=== PATIENT | female | born 1960 | race Asian ===

== ENCOUNTER 2025-01-20 14:49 | Emergency (ER) | payer OTHER, SELFPAY ==
[2025-01-20 14:52] VITALS: BP 183/107
[2025-01-20 16:00] VITALS: BP 203/110
[2025-01-20 16:47] VITALS: BMI 27.4
[2025-01-20 17:00] VITALS: BP 200/113
--- NOTE | 2025-01-20 17:01 | ED.GENMED ---
History of Present Illness
General
Chief Complaint: Headache
Source: patient
Time Seen by Provider: 01/20/25 16:48
Nursing documentation reviewed up to this point in time: agreed with
History of Present Illness
History of Present Illness:
64 yo female with hx HTN presents for high blood pressure and headache.
She stopped taking her BP meds a few months ago as she thought it was giving her heart burn
Past 2 weeks has had intermittent ringing in her left ear.
Her headache started 2 nights ago, is mainly right frontal and behind right eye. H/A was 10/10 with nausea at 11:30 this a.m. and went to who sent her here.
Took Tylenol 2 nights ago for h/a but nothing since.
Denies CP, SOB, abdominal pain. Denies nausea at this time, denies v/d/c
Past History
Past History
ED Past Medical History: HTN
ED Past Surgical History: Gynecological
Social History
Tobacco: Non-smoker
Alcohol: None
Personal: Single
Living: alone
Employment: Employed (Tailor)
Review of Systems
Review of Systems
Allergies reviewed?: Yes
All Other Systems: ROS reviewed and negative except as documented in HPI and ROS
Constitutional: Denies fever
Respiratory: Denies trouble breathing
Cardiac: Denies chest pain, diaphoresis or palpitations
ABD/GI: Denies abdominal pain, nausea, vomiting or diarrhea
: Denies dysuria, frequency or difficulty voiding
Musculoskeletal: Reports no symptoms
Skin: Reports no symptoms
Neurological: Reports headache; Denies dizzy, weakness or numbness
Phy Exam
Physical Exam
Physical Exam:
GENERAL: No acute distress. A&Ox3.
CONSTITUTIONAL: Afebrile.
EYES: clear, conjunctivae normal
ENMT: moist mucus membranes, Pharynx nl
RESPIRATORY: Regular respirations, nonlabored, lungs clear.
CARDIOVASCULAR: Regular rate and rhythm, no murmurs, no rubs.
GI: Soft, nontender, normal BS
MUSCULOSKELETAL: Moves with ease. Well perfused.
SKIN: Warm, dry, pink
PSYCH: Normal mood and affect. Well kept, interactive and appropriate
NEUROLOGIC: Awake, alert and oriented. No focal neurological deficits
Course
Orders/Labs/Results
Orders:
Orders
01/20/25 17:00
Electrocardiogram (*1) Urgent
Reason for Study: Hypertension, Benign
EKG- Treatment ONCE
01/20/25 17:01
CT Head W/o Iv Contrast Urgent
Comment:
Reason For Exam: right side headache, HTN
01/20/25 17:15
Complete Blood Count/With Diff Urgent
Comprehensive Metabolic Panel Urgent
01/20/25 17:20
Amlodipine [Norvasc] 5 mg PO NOW STA
Abnormal Lab Results
01/20/25
17:15
Neutrophils % 76.4 H %
(42.2-75.2)
Lymphocytes % 19.9 L %
(20.5-51.1)
Carbon Dioxide 31 H mmol/L
(22-30)
Creatinine 0.5 L mg/dL
(0.6-1.0)
Glucose 122 H mg/dl
(70-99)
Total Bilirubin 1.4 H mg/dl
(0.2-1.3)
01/20/25 17:15
01/20/25 17:15
Vital Signs
Initial and Last Documented VS:
Initial Vital Signs
Temp Pulse Resp BP Pulse Ox
98.3 F 70 16 183/107 100
01/20/25 14:52 01/20/25 14:52 01/20/25 14:52 01/20/25 14:52 01/20/25 14:52
Last Documented Vital Signs
Temp Pulse Resp BP Pulse Ox
98.3 F 83 17 167/105 97
01/20/25 14:52 01/20/25 19:30 01/20/25 19:30 01/20/25 19:00 01/20/25 19:30
Health Service Coordinator consulted with Physician
Health Service Coordinator consulted with physician?: Yes
Name of Physician Consulted: Jeny
MDM/Problems Addressed
Differential Diagnosis Includes:
Hypertensive urgency/emergency
Brain bleed
Hypertensive headache, migraine, tension headache
MDM/Problems Addressed:
64 yo female with hx HTN presents for high blood pressure and headache, mild blurry vision both eyes.
She stopped taking her BP meds a few months ago as she thought it was giving her heart burn
Past 2 weeks has had intermittent ringing in her left ear.
Her headache started 2 nights ago, is mainly right frontal and behind right eye. H/A was 10/10 with nausea at 11:30 this a.m. and went to who sent her here.
Took Tylenol 2 nights ago for h/a but nothing since.
Denies CP, SOB, abdominal pain. Denies nausea at this time, denies v/d/c
Afebrile, NAD, BP 183/107
Denies blurry vision presently
Pharmacist Edith reviewed patient's pharmacy list and found that she was on losartan 50 mg daily and also Tricor which she has not been taking.
6:00 p.m.
CBC, CMP unremarkable
Pt head CT pending
Amlodipine given
Rx for Amlodipine sent to pt pharmacy
Pt in CT.
Dr. Iqbal shift is over
Case discussed with Dr. Fermin who will assume care from this point
Chronic conditions affecting care: HTN
*Critical Care Note
Total Time (30-74mins, 75-104mins- exclusive of procedures): Not Applicable
ED Attending Note
-
Portions of this chart may have been created with voice recognition software.� Occasional wrong word or��sound alike� substitutions may have occurred due to the inherent limitations of voice recognition software.
Discharge Plan
Departure
Patient Disposition: Home (Routine Discharge)
Date of Disposition: 01/20/25
Time of Disposition: 19:08
Patient with high blood pressure during this ER visit?: Yes
Condition: Fair
Discharge Problem:
Hypertensive urgency
Instructions: Headache, Adult (DC), BLOOD PRESSURE
Prescriptions:
New
amlodipine 5 mg tablet
5 mg PO DAILY Qty: 30 0RF
Referrals:
Wayne Bah MD [Family Provider] - Call in 1-3 days for appt
Activity Restrictions/Additional Instructions:
As we discussed, it is very important that you take your blood pressure medicaion.
I sent a prescription to your pharmacy for blood pressure medication Amlodipine. Take it daily
See your doctor in 1-2 weeks for blood pressure check. If your pressure is still high the medication may need to be adjusted.
Interventions
Interventions:
*Risk Screen - Suicide Last Done: 01/20/25 16:47
*General Assessment Last Done: 01/20/25 16:47
*Neglect/Abuse Screening Last Done: 01/20/25 16:47
*ED- Fall Risk Assessment Last Done: 01/20/25 16:47
*ED COVID-19 Vaccine History Last Done: 01/20/25 16:47
*Nursing Disposition Last Done: 01/20/25 19:41
ED- Neurological Assessment Last Done: 01/20/25 16:43
Discharge Date and Time
Discharge Date/Time: 01/20/25 19:41
Print Language: Danish
--- NOTE | 2025-01-20 17:14 | PHANOTE ---
med rec note- [facility] losartan 50mg daily and tricor 134mg daily but patient has not taking them for 2-3 months
[2025-01-20 17:27] LABS: % Basophils 0.3 % (0-2); % Eosinophils 0.3 % (0-6); % Immature Granulocytes 0.2 % (0-0.5); % Lymphocytes 19.9 % (20.5-51.1); % Monocytes 2.9 % (1.7-9.3); % Neutrophils 76.4 % (42.2-75.2); Absolute Lymphocytes 1.3 10^3/uL (1.2-3.4); Absolute Monocytes 0.2 10^3/uL (0.1-0.6); Absolute Neutrophils 4.8 10^3/uL (1.4-6.5); Hematocrit 45.5 % (37.0-47.0); Hemoglobin 15.6 g/dL (12.0-16.0); Mean Corp Hgb Conc. 34.3 g/dL (33.0-37.0); Mean Corpuscular Hgb 30.2 pg (27.0-31.0); Mean Corpuscular Volume 88.2 fL (81.0-99.0); Mean Platelet Volume 9.9 fL (7.4-10.4); Nucleated Red Blood Cells % 0 %; Platelet Count 175 10^3/uL (130-400); Red Blood Cell Count 5.16 10^6/uL (4.20-5.40); Red Cell Dist. Width 12.7 % (11.5-14.5); White Blood Cell Count 6.3 10^3/uL (4.8-10.8)
[2025-01-20 17:37] LABS: ALT (SGPT) 25 U/L (0-35); AST (SGOT) 31 U/L (14-36); Albumin 4.5 g/dl (3.5-5.0); Alkaline Phosphatase 67 U/L (38-126); Blood Urea Nitrogen 13 mg/dl (7-17); Carbon Dioxide 31 mmol/L (22-30); Chloride 104 mmol/L (98-107); Estimated Creatinine Clearance 78 ml/min; Glucose 122 mg/dl (70-99); Potassium 4.6 mmol/L (3.5-5.1); Sodium 141 mmol/L (135-145); Total Bilirubin 1.4 mg/dl (0.2-1.3); Total Protein 7.3 g/dl (6.3-8.2); eGFR > 60.00
[2025-01-20 17:41] VITALS: BP 169/114
[2025-01-20] MEDS: NORVASC 5 MG PO (17:54)
[2025-01-20 18:33] VITALS: BP 151/97
[2025-01-20 19:00] VITALS: BP 167/105
== END 2025-01-20 19:41 | disposition home or self-care (01) ==
LOC: EMR 14:49
PROVIDERS: Registered Nurse; EMERGENCY PHYSICIAN Emergency Medicine; FAMILY PHYSICIAN Internal Medicine
DX: I16.0 Hypertensive urgency (principal); Z91.148 Patient's other noncompliance with medication regimen for other reason; Z79.899 Other long term (current) drug therapy
CPT/HCPCS: 99284; 70450; 80053; 85025; 93005